=== PATIENT | female | born 1930 | race Caucasian/White ===

== ENCOUNTER 2018-09-08 15:03 | Inpatient (IN) | payer MEDICARE, OTHER ==
[~2018-09-08] VITALS: Ht 160 cm; Wt 83.9 kg
[~2018-09-08 15:03] MED LIST: FLUSH; HYDR-2966 PO; INDO-23 PO; MAGN400T36 PO; METO25TA93 PO; POTA20TA94 PO; WARF2TAB13 PO
[2018-09-08] MEDS ORDERED: NS(*) 0.9% 1000 ML BAG 1,000 ML IV ONE (15:13)
[2018-09-08] MEDS ORDERED: PANTOPRAZOLE SOD 40 MG IV VIAL IVP ONE (15:15)
--- NOTE | 2018-09-08 15:25 | ER Report ---
History and Physical Time Seen By MD: 15:05 HPI/ROS CHIEF COMPLAINT: Bloody stool HISTORY OF PRESENT ILLNESS: This is an 88-year-old female presents to the emergency department via EMS for bloody stools. Patient is a resident of [facility], this morning she had 3 bright red stools, then had a fourth stool which was dark. Patient did go to the clinic in [place] was brieftly evaluated, subsequently our emergency department was contacted as they wanted to transport to our ED. being transported to via ground ems. She arrives alert and oriented however when we sat her up to get her off the gurney she did become diaphoretic and pale, states that she is passing stool, she was lifted to the ED gurney. 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 She denies chest pain or shortness of breath, no nausea or vomiting. No abdominal pain or rectal pain. No history of GI bleeds. REVIEW OF SYSTEMS: Constitutional: No fever, no chills. Eyes: No discharge. ENT: No sore throat. Cardiovascular: No chest pain, no palpitations. Respiratory: No cough, no shortness of breath. Gastrointestinal: As above. Genitourinary: No hematuria. Musculoskeletal: No back pain. Skin: No rashes. Neurological: No headache. Allergies: Coded Allergies: No Known Drug Allergies (Unverified , 06/21/14) Home Meds Reported Medications Indomethacin (INDOMETHACIN) 50 Mg Capsule, 1 CAP PO TID PRN for gout, CAPSULE 06/21/14 Potassium Chloride (POTASSIUM CHLORIDE) 20 Meq Tab.er.prt, 1 TAB PO QDAY 06/21/14 Metoprolol Tartrate (METOPROLOL TARTRATE) 25 Mg Tablet, 1 TAB PO BID, TAB 06/21/14 Magnesium Oxide (MAGNESIUM OXIDE) 400 Mg Tablet, 1 TAB PO QDAY 06/21/14 Hydrochlorothiazide (HYDROCHLOROTHIAZIDE) 25 Mg Tablet, 1 TAB PO QODAY 06/21/14 Discontinued Reported Medications Warfarin Sodium (WARFARIN SODIUM) 5 Mg Tablet, 2.5 MG PO QDAY, TAB 09/08/18 Warfarin Sodium (WARFARIN SODIUM) 2 Mg Tablet, 1 TAB PO QDAY or as directed 06/21/14 Discontinued Scripts [Flush] No Conflict Check, 1 BOX, #1 BOX 0 Refills 1 saline flush per protocol daily Prov:MICKEY BELLO MD 07/05/14 [Flush] No Conflict Check, BOX, #1 Heparin and saline flush daily as directed Prov:MICKEY BELLO MD 06/21/14 Past Medical/Surgical History The patient has a past medical and surgical history of left breast cancer, maste ctomy, chronic anticoagulation, 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 Reviewed Nurses Notes: Yes Constitutional Vital Sign - Last 24 Hours 09/08/18 09/08/18 09/08/18 09/08/18 15:03 15:09 15:13 15:17 Pulse ??? 79 Resp 12 B/P (MAP) 99/44 (62) 94/57 (69) 99/44 Pulse Ox 85 O2 Delivery Room Air 09/08/18 09/08/18 09/08/18 09/08/18 15:28 15:41 15:48 15:50 Pulse 84 Resp 20 B/P (MAP) 67/47 (54) 102/67 (79) 124/59 (80) Pulse Ox 99 09/08/18 09/08/18 09/08/18 09/08/18 15:59 16:03 16:10 16:15 Pulse 74 Resp 17 B/P (MAP) 76/32 (47) 85/33 (50) 98/54 (69) 112/70 (84) Pulse Ox 91 09/08/18 09/08/18 09/08/18 09/08/18 16:18 16:20 16:20 16:25 Pulse 73 Resp 11 B/P (MAP) 103/53 (70) 104/72 (83) Pulse Ox 99 O2 Flow Rate 3.0 09/08/18 09/08/18 09/08/18 09/08/18 16:30 16:33 16:35 16:40 Pulse 73 Resp 12 B/P (MAP) 107/61 (76) 121/57 (78) 135/100 (112) Pulse Ox 98 09/08/18 09/08/18 09/08/18 09/08/18 16:45 16:48 16:50 16:55 Pulse 104 Resp 9 B/P (MAP) 113/56 (75) 118/53 (74) 94/55 (68) Pulse Ox 97 4/10/09/08/18 09/08/18 09/08/18 17:00 17:03 17:10 17:15 Pulse 97 Resp 10 B/P (MAP) 102/66 (78) ???/??? (1664) ???/??? (1664) Pulse Ox 96 09/08/18 09/08/18 09/08/18 09/08/18 17:25 17:30 17:35 17:38 Pulse 78 Resp 10 B/P (MAP) 103/71 (82) 114/80 (91) 108/48 (68) Pulse Ox 98 09/08/18 09/08/18 09/08/18 09/08/18 17:40 17:45 17:50 17:53 Pulse 88 Resp 14 B/P (MAP) 85/53 (64) 87/63 (71) 96/45 (62) Pulse Ox 96 09/08/18 09/08/18 09/08/18 09/08/18 17:55 18:00 18:05 18:05 Temp 97.8 B/P (MAP) 103/76 (85) 114/38 (63) 119/60 (79) 09/08/18 09/08/18 09/08/18 09/08/18 18:08 18:10 18:15 18:20 Pulse 76 B/P (MAP) 105/52 (69) 89/60 (70) 105/83 (90) 09/08/18 09/08/18 09/08/18 09/08/18 18:23 18:25 18:30 18:34 Pulse 80 Resp 10 B/P (MAP) 123/58 (79) 72/50 (57) 111/85 (94) Pulse Ox 97 09/08/18 18:38 Pulse 82 Resp 15 Pulse Ox 95 Physical Exam General Appearance: The patient is alert, has no immediate need for airway protection and no signs of toxicity. Eyes: Pupils equal and round no pallor conjunctiva. ENT, Mouth: Mucous membranes are moist. Respiratory: There are no retractions, lungs are clear to auscultation. Cardiovascular: Regular rate and rhythm, faint systolic murmur, no clicks or rubs. Gastrointestinal: Abdomen is soft, tenderness to the right lower quadrant with palpation otherwise unremarkable, normoactive bowel sounds, no abdominal bruits no masses. Upon examination there is a large amount of melena between the enrique ent's legs coming from her rectum, with a large number of clots. Neurological: Alert and oriented eyes 4. Moving all MDs. Following all commands. No focal neuro deficits. Skin: Warm and dry, no rashes. Musculoskeletal: Neck is supple non tender. Extremities are nontender, nonswollen and have full range of motion. DIFFERENTIAL DIAGNOSIS: After history and physical exam differential diagnosis was considered for upper GI bleeding including but not limited to ulcer disease, gastritis, Lindsay-Villa tear, and esophageal varices. Medical Decision Making Data Points Result Diagram: 09/10/1845 09/10/1845 Laboratory Hematology Test 09/08/18 15:40 09/08/18 16:04 09/08/18 16:49 09/08/18 18:44 Total Bilirubin 0.5 mg/dl (0.2-1.3) Aspartate Amino Transf (AST/SGOT) 17 U/L (0-35) Alanine Aminotransferase (ALT/SGPT) 19 U/L (0-56) Alkaline Phosphatase 82 U/L (0-126) Troponin I < 0.012 ng/ml Total Protein 5.7 g/dl (6.3-8.2) Albumin 3.2 g/dl (3.5-5.0) Lipase 30 U/L (23-300) Activated Partial Thromboplast Time 43 seconds (23-35) Urine Color Yellow Urine Clarity Slightly-cloudy Urine pH 5.0 pH (4.8-9.5) Urine Specific [place] 1.017 Urine Protein Negative mg/dL (NEGATIVE) Urine Glucose (UA) Negative mg/dL (NEGATIVE) Urine Ketones Trace mg/dL (NEGATIVE) Urine Blood Small (NEGATIVE) Urine Nitrite Negative (NEGATIVE) Urine Bilirubin Negative (NEGATIVE) Urine Urobilinogen Negative mg/dL (0.2-1.9) Urine Leukocyte Esterase Negative (NEGATIVE) Urine RBC 1 /HPF (0-2/HPF) Urine WBC <1 /HPF (0-5/HPF) Urine Squamous Epithelial Cells Few /LPF (NONE-FEW) Urine Bacteria Negative /HPF (NONE-FEW) Urine Hyaline Casts Few /LPF (NONE-FEW) Urine Mucus None /HPF (NONE-FEW) Lab Scanned Report Emergency Blood Chemistry Test 09/08/18 15:40 09/08/18 16:04 09/08/18 16:49 09/08/18 18:44 Total Bilirubin 0.5 mg/dl (0.2-1.3) Aspartate Amino Transf (AST/SGOT) 17 U/L (0-35) Alanine Aminotransferase (ALT/SGPT) 19 U/L (0-56) Alkaline Phosphatase 82 U/L (0-126) Troponin I < 0.012 ng/ml Total Protein 5.7 g/dl (6.3-8.2) Albumin 3.2 g/dl (3.5-5.0) Lipase 30 U/L (23-300) Activated Partial Thromboplast Time 43 seconds (23-35) Urine Color Yellow Urine Clarity Slightly-cloudy Urine pH 5.0 pH (4.8-9.5) Urine Specific [place] 1.017 Urine Protein Negative mg/dL (NEGATIVE) Urine Glucose (UA) Negative mg/dL (NEGATIVE) Urine Ketones Trace mg/dL (NEGATIVE) Urine Blood Small (NEGATIVE) Urine Nitrite Negative (NEGATIVE) Urine Bilirubin Negative (NEGATIVE) Urine Urobilinogen Negative mg/dL (0.2-1.9) Urine Leukocyte Esterase Negative (NEGATIVE) Urine RBC 1 /HPF (0-2/HPF) Urine WBC <1 /HPF (0-5/HPF) Urine Squamous Epithelial Cells Few /LPF (NONE-FEW) Urine Bacteria Negative /HPF (NONE-FEW) Urine Hyaline Casts Few /LPF (NONE-FEW) Urine Mucus None /HPF (NONE-FEW) Lab Scanned Report Emergency Blood Coagulation Test 09/08/18 16:04 Activated Partial Thromboplast Time 43 seconds Urinalysis Test 09/08/18 16:49 Urine Color Yellow Urine Clarity Slightly-cloudy Urine pH 5.0 pH (4.8-9.5) Urine Specific [place] 1.017 Urine Protein Negative mg/dL (NEGATIVE) Urine Glucose (UA) Negative mg/dL (NEGATIVE) Urine Ketones Trace mg/dL (NEGATIVE) Urine Blood Small (NEGATIVE) Urine Nitrite Negative (NEGATIVE) Urine Bilirubin Negative (NEGATIVE) Urine Urobilinogen Negative mg/dL (0.2-1.9) Urine Leukocyte Esterase Negative (NEGATIVE) Urine RBC 1 /HPF (0-2/HPF) Urine WBC <1 /HPF (0-5/HPF) Urine Squamous Epithelial Cells Few /LPF (NONE-FEW) Urine Bacteria Negative /HPF (NONE-FEW) Urine Hyaline Casts Few /LPF (NONE-FEW) Urine Mucus None /HPF (NONE-FEW) EKG/Imaging EKG Interpretation 12 lead EKG: Time of EKG 1518. Rhythm: Normal sinus rhythm, ventricular rate 76 bpm. [place]: normal QRS: normal ST segments: No ST depression or elevation identified. Inverted T wave in lead 3 No previous EKGs for comparison. Imaging Location: [facility] [place] Patient: Kita Grover : 1930 Visit/Account:[id number] Date of Sevice: 09/08/2018 CHEST SINGLE AP History: lightheaded FINDINGS: Comparison studies: None. Tubes and Lines: None. Lungs and pleura: Well aerated. No evidence of focal consolidation or pleural effusions. Mediastinum: There is a fullness to the mediastinum without a well-defined mass. There is a mild rightward deviation of the trachea. Cardiac silhouette: Cardiac silhouette borderline upper normal limits. No evidence of failure. Osseous structures: Left shoulder arthroplasty noted. Otherwise unremarkable for age. IMPRESSION: Mediastinal prominence. Given patient's advanced age this may be related to vascular ectasia as well as ascending aneurysmal dilatation. Mediastinal mass cannot be excluded. Recommend follow-up chest CT, preferably with contrast, for further evaluation. Report Dictated By: Heri Langston MD at 09/08/2018 4:40 PM Report E-Signed By: Heri Langston MD at 09/08/2018 4:43 PM WSN:[id number] Location: [facility] [place] Patient: Kita Grover : 1930 Visit/Account:[id number] Date of Sevice: 09/08/2018 COMPUTED TOMOGRAPHY OF THE CHEST, ABDOMEN, AND PELVIS with CONTRAST DATE OF EXAM: 09/08/2018. INDICATION: . eval for aneurysm. . TECHNIQUE: Contiguous axial CT images were obtained through the chest, abdomen, and pelvis after 75 mL Isovue-370. Coronal and sagittal reformatted images were submitted. COMPARISON: None. FINDINGS: Thyroid: There are a few small nodules in the right lobe of the thyroid. Thoracic inlet: No thoracic inlet adenopathy. Heart and great vessels: Heart size is normal. Moderate aortic arch atherosclerosis. Mediastinum and brittany: No mediastinal or hilar adenopathy. Lungs and pleura: No effusion, consolidation, or pneumothorax. Mild dependent atelectasis and/or scar. There is a 1.2 cm subpleural nodule at the left base on image 71 of series 2. Breast and axilla: Unremarkable by CT with numerous coarse calcifications of the right breast. Liver and hepatic vasculature: No focal liver lesion. Gallbladder and bile ducts: Surgically absent gallbladder. Mild prominence of the common bile duct in keeping with cholecystectomy. Spleen: Normal Pancreas: Moderate pancreatic atrophy. Adrenals: Normal Kidneys, ureters and bladder: Mild left hydronephrosis but no downstream stone. Retroperitoneum and aorta: Extensive aortic atherosclerosis. No aneurysm. GI tract, mesentery and peritoneum: Colonic diverticula are numerous without definite findings of diverticulitis. Uterus and adnexa: Surgically absent uterus. Bones and soft tissues: Bone density is diffusely decreased. Severe multilevel degenerative findings in the spine. A left shoulder prosthesis is noted. Indeterminate 1.4 cm lucency within the L4 vertebral body. Additional ill- defined 1 cm lucency in the L3 vertebral body. IMPRESSION: 1. No thoracoabdominal aneurysm. 2. Indeterminate 1.2 cm nodule laterally in the left lower lobe. Consider follow-up CT in three months. 3. Indeterminate lucencies/lucent lesions in the L4 and L3 vertebral bodies. These may be incidental, but recommend comparison to prior imaging if available. Neoplasm not entirely excluded. One of the following dose optimization techniques was utilized in the performance of this exam: Automated exposure control; adjustment of the mA and/or kV according to the patient's size; or use of an iterative reconstruction technique. Specific details can be referenced in the facility's radiology CT exam operational policy. Report Dictated By: Josse Perez MD at 09/08/2018 5:47 PM Report E-Signed By: Josse Perez MD at 09/08/2018 6:07 PM WSN:[id number] ED Course/Re-evaluation Clinical Indication for ER IV: Hypotention, IV Access ED Course The patient was admitted to room via EMS. A history and physical were obtained. Differential diagnoses were considered. EKG showing normal sinus rhythm. A CBC, CMP, troponin, PT and INR were obtained.CBC unremarkable, chemistry showing creatinine 1.20, negative troponin, INR 3.05 negative UA. Patient was given a total of 2 L of normal saline in the emergency department, was given 1 L of normal saline en route. I did try to sit the patient up several times, she was symptomatic with lightheadedness, diaphoretic. The patient's blood pressures were in the 60s and 70s systolic, I discussed vascular access as we were having difficulties with peripheral access, patient was agreeable with a central line, a right femoral central line was placed has not below. Dr. Das was at the bedside during the procedure. Single view chest x-ray showing Mediastinal prominence given the patient's age, recommendation was a CT of the chest, a CT of the chest and pelvis was performed. Negative for aneurysm. Patient was given 2 units of FFP. 40 mg IV Protonix, followed by an 80 mg IV Protonix drip. Patient's blood pressures signatory improved, consistently around 100-110 systolic. Patient states she is feeling much better, color has improved. I speak with Dr. Mark regarding the patients case, she was admitted for upper GI bleed, she will likely have lower and upper GI inspection. Patient remains NPO as this time. Procedure: Central line placement. After verbal informed consent from patient; with the risks explained to be bleeding, infection, and collapsed lung; maximal sterile barrier technique was uses including cap, gown, sterile gloves, large sheet, hand washing and chlorhexidine prep. The area anesthetized with 1% lidocaine. The right femoral vein was punctured with a 19 gauge finder needle, then a wire introducer was placed, a 7 [place] triple lumen was placed using Seldinger technique. There were no complications. Blood return low pressure, dark blood. Patient to lerated procedure well. CT results Appropriate line placement, and no pneumothorax. . Radiologist interpretation is pending. The procedure was performed by myself and Dr. Das 09/08/2018 5:01:34 pm I did consult with Dr. Garland, after reviewing the x-ray, we discussed imaging the chest and pelvis, also start her on FFP. Patient is agreeable. 09/08/2018 6:22:30 pm I did speak with Dr. Garland, who reviewed the CT, he is accepted the patient and the surgical services, patient will be admitted to the medical floor, she is getting a total of 2 units of FFP. Decision to Disposition Date: Sep 08, 2018 Decision to Disposition Time: 18:22 Depart Departure Latest Vital Signs Vital Signs Date Time Temp Pulse Resp B/P (MAP) Pulse Ox O2 Delivery O2 Flow Rate FiO2 09/08/18 18:38 82 15 95 09/08/18 18:34 111/85 (94) 09/08/18 18:05 97.8 09/08/18 16:20 3.0 09/08/18 15:17 Room Air Impression: Primary Impression: Upper GI bleed Condition: Improved Disposition: Admitted from ER Referrals: MICKEY BELLO MD (PCP) KATHY CARBAJAL CRM COORDINATOR-BC Sep 08, 2018 15:25
--- NOTE | 2018-09-08 15:28 | EKG ---
FACILITY: [facility] [place] PATIENT NAME: BUTCH SWANSON : [id number] MR: [id number] V: [id number] EXAM DATE: ORDERING PHYSICIAN: KATHY CARBAJAL TECHNOLOGIST: Test Reason : Blood Pressure : / mmHG Vent. Rate : 076 BPM Atrial Rate : 076 BPM P-R Int : 158 ms QRS Dur : 074 ms QT Int : 378 ms P-R-T Axes : 044 033 022 degrees QTc Int : 425 ms Normal sinus rhythm Normal ECG No previous ECGs available Confirmed by SANA CASTRO ([id number]) on 09/09/2018 6:38:23 AM Referred By: Confirmed By:SANA CASTRO
[2018-09-08 16:02] LABS: PLATELET COUNT, AUTOMATED 200 K/uL (150-450)
[2018-09-08 16:12] LABS: INR 3.05
[2018-09-08] MEDS ORDERED: WARF5TAB23 PO (16:29)
--- NOTE | 2018-09-08 16:48 | RADIOLOGY IMAGING REPORT ---
FACILITY: [facility] PATIENT NAME: Kita Grover : 1930 MR: [id number] V: [id number] EXAM DATE: ORDERING PHYSICIAN: KATHY CARBAJAL TECHNOLOGIST: Location: [facility] [place] Patient: Kita Grover : 1930 Visit/Account:[id number] Date of Sevice: 09/08/2018 CHEST SINGLE AP History: lightheaded FINDINGS: Comparison studies: None. Tubes and Lines: None. Lungs and pleura: Well aerated. No evidence of focal consolidation or pleural effusions. Mediastinum: There is a fullness to the mediastinum without a well-defined mass. There is a mild ri ghtward deviation of the trachea. Cardiac silhouette: Cardiac silhouette borderline upper normal limits. No evidence of failure. Osseous structures: Left shoulder arthroplasty noted. Otherwise unremarkable for age. IMPRESSION: Mediastinal prominence. Given patient's advanced age this may be related to vascular ectasia as we ll as ascending aneurysmal dilatation. Mediastinal mass cannot be excluded. Recommend follow-up [facility] CT, preferably with contrast, for further evaluation. Report Dictated By: Heri Langston MD at 09/08/2018 4:40 PM Report E-Signed By: Heri Langston MD at 09/08/2018 4:43 PM WSN:[id number]
[2018-09-08] MEDS ORDERED: IOPAMIDOL 76% 150 ML INFUS BTL 150 ML ONE (17:08)
[2018-09-08] MEDS: PANTOPRAZOLE SOD(*)40 MG VIAL 80 MG in NS(*) 0.9% 100 ML BAG 100 ML IV SCH (17:28)
--- NOTE | 2018-09-08 18:11 | RADIOLOGY IMAGING REPORT ---
FACILITY: [facility] PATIENT NAME: Kita Grover : 1930 MR: [id number] V: [id number] EXAM DATE: ORDERING PHYSICIAN: KATHY CARBAJAL TECHNOLOGIST: [place] [facility] [place] Kita Grover : 1930 Visit/Account:[id number] Date of Sevice: 09/08/2018 COMPUTED TOMOGRAPHY OF THE CHEST, ABDOMEN, AND PELVIS with CONTRAST DATE OF EXAM: 09/08/2018. INDICATION: . eval for aneurysm. . TECHNIQUE: Contiguous axial CT images were obtained through the chest, abdomen, and pelvis after 75 mL Isovue-370. Coronal and sagittal reformatted images were submitted. COMPARISON: None. FINDINGS: Thyroid: There are a few small nodules in the right lobe of the thyroid. Thoracic inlet: No thoracic inlet adenopathy. Heart and great vessels: Heart size is normal. Moderate aortic arch atherosclerosis. Mediastinum and brittany: No mediastinal or hilar adenopathy. Lungs and pleura: No effusion, consolidation, or pneumothorax. Mild dependent atelectasis and/or sc ar. There is a 1.2 cm subpleural nodule at the left base on image 71 of series 2. Breast and axilla: Unremarkable by CT with numerous coarse calcifications of the right breast. Liver and hepatic vasculature: No focal liver lesion. Gallbladder and bile ducts: Surgically absent gallbladder. Mild prominence of the common bile duct in keeping with cholecystectomy. Spleen: Normal Pancreas: Moderate pancreatic atrophy. Adrenals: Normal Kidneys, ureters and bladder: Mild left hydronephrosis but no downstream stone. Retroperitoneum and aorta: Extensive aortic atherosclerosis. No aneurysm. GI tract, mesentery and peritoneum: Colonic diverticula are numerous without definite findings of div erticulitis. Uterus and adnexa: Surgically absent uterus. Bones and soft tissues: Bone density is diffusely decreased. Severe multilevel degenerative findings in the spine. A left shoulder prosthesis is noted. Indeterminate 1.4 cm lucency within the L4 vert ebral body. Additional ill-defined 1 cm lucency in the L3 vertebral body. IMPRESSION: 1. No thoracoabdominal aneurysm. 2. Indeterminate 1.2 cm nodule laterally in the left lower lobe. Consider follow-up CT in three mon ths. 3. Indeterminate lucencies/lucent lesions in the L4 and L3 vertebral bodies. These may be incidenta l, but recommend comparison to prior imaging if available. Neoplasm not entirely excluded. One of the following dose optimization techniques was utilized in the performance of this exam: Autom ated exposure control; adjustment of the mA and/or kV according to the patient's size; or use of an i terative reconstruction technique. Specific details can be referenced in the facility's radiology C T exam operational policy. Report Dictated By: Josse Perez MD at 09/08/2018 5:47 PM Report E-Signed By: Josse Perez MD at 09/08/2018 6:07 PM WSN:[id number]
[2018-09-08] MEDS ORDERED: MORPHINE 2 MG/ML SYR IVP PRN (18:25)
[2018-09-08] MEDS ORDERED: FLUSH 10 ML SYR IVP PRN (18:25)
[2018-09-08] MEDS ORDERED: NALOXONE HCL 0.4 MG/ML VIAL IVP PRN (18:25)
[2018-09-08] MEDS ORDERED: ONDANSETRON 4 MG/2 ML VIAL IVP PRN (18:25)
--- NOTE | 2018-09-08 20:04 | Gen Surgery History & Physical ---
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 It started this morning with copious amounts of bright red blood per rectum, large volume and the last bowel movement was more dark blood. She's had about 5 or 6 bloody bowel movements today. She has had previous small volume bright red blood per rectum that she has attributed to hemorrhoids but this was much different today. No abdominal pain. She has felt lightheaded and weak. Her last colonoscopy was many years ago, 20 years ago approximately, and she reports polyps are removed but they were unable to get all the way around her colon due to "a kink in her bowel". No family history of colon or rectal cancer. She did have a left mastectomy for months ago in [place] for a left breast cancer. She reports her lymph nodes were negative. 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 History Problems: (1) History of Status: Chronic (2) History of hysterectomy Status: Chronic (3) History of cholecystectomy Status: Chronic (4) History of appendectomy Status: Chronic (5) History of DVT (deep vein thrombosis) (6) Chronic anticoagulation Status: Chronic (7) Gout Status: Chronic Home Meds Reported Medications Warfarin Sodium (WARFARIN SODIUM) 5 Mg Tablet, 2.5 MG PO QDAY, TAB 09/08/18 Indomethacin (INDOMETHACIN) 50 Mg Capsule, 1 CAP PO TID PRN for gout, CAPSULE 06/21/14 Potassium Chloride (POTASSIUM CHLORIDE) 20 Meq Tab.er.prt, 1 TAB PO QDAY 06/21/14 Metoprolol Tartrate (METOPROLOL TARTRATE) 25 Mg Tablet, 1 TAB PO BID, TAB 06/21/14 Magnesium Oxide (MAGNESIUM OXIDE) 400 Mg Tablet, 1 TAB PO QDAY 06/21/14 Hydrochlorothiazide (HYDROCHLOROTHIAZIDE) 25 Mg Tablet, 1 TAB PO QODAY 06/21/14 Discontinued Reported Medications Warfarin Sodium (WARFARIN SODIUM) 2 Mg Tablet, 1 TAB PO QDAY or as directed 06/21/14 Discontinued Scripts [Flush] No Conflict Check, 1 BOX, #1 BOX 0 Refills 1 saline flush per protocol daily Prov:MICKEY BELLO MD 07/05/14 [Flush] No Conflict Check, BOX, #1 Heparin and saline flush daily as directed Prov:MICKEY BELLO MD 06/21/14 Allergies: Coded Allergies: No Known Drug Allergies (Unverified , 06/21/14) Patient History: FH: diabetes mellitus MOTHER, , Age:54 Review of Systems All Systems Reviewed/Normal: Yes, Except as Noted Neurological: Weakness, Dizziness Gastrointestinal: Hematochezia, Melena Exam General Appearance: Alert, Awake, No Acute Distress, Afebrile Neuro: No Gross deficits Eyes: PERRLA Chest: Other (well-healed mastectomy scar, left chest) GI: Abd Soft and Non-Tender Extremities: Warm, Perfused Psych: Alert & Oriented X3, Appropriate Mood & Affect Medical Decision Making Data Points Result Diagram: 09/08/18 1540 09/08/18 1540 Assessment and Plan Problems: (1) GI bleeding Status: Acute Assessment & Plan: 09/08/18: Will admit for close observation. We will transfuse FFP to normalize her INR and will transfuse packed red blood cells based on her hemoglobin. Her hemoglobin in the emergency room is still in the normal range but we'll follow this closely as I'm sure it'll drop as we rehydrate her and initiate collaborate. We'll keep her nothing by mouth tonight until emergency surgery is ruled out. We'll avoid any blood thinners were NSAIDs. Will continue the PPI drip that was started in the ER until we can rule out peptic ulcer disease. She does take indomethacin regularly for gout so is at risk for PUD. We'll plan on bowel prep tomorrow and upper and lower GI endoscopy after her prep is completed. I have explained this plan to her in great detail and her questions have been answered. She indicates her understanding of this discussion and she indicates that she is agreeable with proceeding with this plan. (2) Chronic anticoagulation Status: Chronic Condition Stable Time Spent: < 30 min Venous Thromboembolism VTE Risk Physician Assess for VTE Risk: Yes Patient's VTE Risk: Low VTE Diagnostic Test 2 Days Prior to Admit: No Antithrombotics Is Pt On Any Antithrombotics?: No Problem Qualifiers (1) GI bleeding: GI bleed type/associated pathology: unspecified gastrointestinal hemorrhage type Qualified Codes: K92.2 - Gastrointestinal hemorrhage, unspecified SANA LOPEZ MD Sep 08, 2018 20:03
[2018-09-08 20:10] VITALS: BP 150/66
[2018-09-08] MEDS: NS(*) 0.9% 1000 ML BAG 1,000 ML IV PRN (20:27)
[2018-09-08] MEDS: METOPROLOL TART 50 MG TAB PO SCH (20:29)
[2018-09-08] MEDS ORDERED: METOPROLOL TART 50 MG TAB PO SCH (21:00)
[2018-09-08 21:23] LABS: INR 1.78
[2018-09-08] MEDS ORDERED: NS(*) 0.9% 500 ML BAG 500 ML ONE (22:07)
[2018-09-08 22:58] VITALS: BP 141/55
[2018-09-08 23:18] VITALS: BP 118/74
[2018-09-09] VITALS (16 sets, daily range): BP systolic 93–152; BP diastolic 33–96; Ht 160 cm; Wt 83.9 kg
[2018-09-09] MEDS: PANTOPRAZOLE SOD(*)40 MG VIAL 80 MG in NS(*) 0.9% 100 ML BAG 100 ML IV SCH ×2 (03:05→13:13)
[2018-09-09] MEDS: NS(*) 0.9% 1000 ML BAG 1,000 ML IV PRN ×2 (04:57→13:13)
[2018-09-09 05:58] LABS: INR 1.86
[2018-09-09 06:01] LABS: PLATELET COUNT, AUTOMATED 126 K/uL (150-450)
--- NOTE | 2018-09-09 07:32 | General Surgery Progress Note ---
Subjective Progress Notes Subjective Had one bloody BM overnight (old blood). No abdominal pain. Feeling much better this morning. Physical Exam Vital Signs Date Time Temp Pulse Resp B/P (MAP) Pulse Ox O2 Delivery O2 Flow Rate FiO2 09/09/18 05:15 85 09/09/18 04:00 56 09/09/18 03:45 97.9 16 121/59 09/09/18 03:45 Nasal Cannula 1.0 Intake and Output 09/09/18 07:00 Intake Total 3850 ml Output Total 50 ml Balance 3800 ml Intake IV Total 2850 ml Blood Product 1000 ml Output Urine Total 50 ml # Voids 5 # Bowel Movements 1 General Appearance: Alert, Awake, No Acute Distress, Afebrile GI: Soft and Non-Tender Extremities: Warm, Perfused Result Diagram: 09/09/1851109/09/18511 Assessment and Plan Problems: (1) GI bleeding Status: Acute Assessment & Plan: 09/08/18: Will admit for close observation. We will transfuse FFP to normalize her INR and will transfuse packed red blood cells based on her hemoglobin. Her hemoglobin in the emergency room is still in the normal range but we'll follow this closely as I'm sure it'll drop as we rehydrate her and initiate collaborate. We'll keep her nothing by mouth tonight until emergency surgery is ruled out. We'll avoid any blood thinners were NSAIDs. Will continue the PPI drip that was started in the ER until we can rule out peptic ulcer disease. She does take indomethacin regularly for gout so is at risk for PUD. We'll plan on bowel prep tomorrow and upper and lower GI endoscopy after her prep is completed. I have explained this plan to her in great detail and her questions have been answered. She indicates her understanding of this discussion and she indicates that she is agreeable with proceeding with this p robel. 09/09/18: Doing well. Vitals stable. H/H dropped significantly yesterday but responded well to 2U pRBC. Will follow H/H today. INR is less then 2 so will follow this. Will give 2 fleets enemas today and will plan on EGD and colonoscopy this afternoon. Continue PPI gtt until I can r/o PUD as the cause of her GI bleeding. I have explained this plan including the EGD and colonoscopy with her in detail along with the alternatives and risks. I emphasized that her colon will not be adequately prepped for a thorough screening quality colonoscopy and it may need to be repeated after appropriate prep. She indicates her understanding of this discussion and her questions were answered to her apparent satisfaction. NPO until after the procedures this afternoon. (2) Chronic anticoagulation Status: Chronic Condition Stable. Time Spent: < 30 min Exam Sepsis Risk: No Definite Risk Problem Qualifiers (1) GI bleeding: GI bleed type/associated pathology: unspecified gastrointestinal hemorrhage type Qualified Codes: K92.2 - Gastrointestinal hemorrhage, unspecified SANA LOPEZ MD Sep 09, 2018 07:32
[2018-09-09] MEDS: METOPROLOL TART 50 MG TAB PO SCH ×2 (09:26→21:00)
[2018-09-09] MEDS ORDERED: NORMOSOL R SOLN(*) 1000 ML BAG 1,000 ML IV ONE (16:00)
[2018-09-09] MEDS ORDERED: MIDAZOLAM 2 MG/2 ML VIAL ONE (17:53)
[2018-09-09] MEDS ORDERED: KETAMINE HCL 500 MG/10 ML VIAL ONE ×2 (18:07→18:15)
[2018-09-09] MEDS ORDERED: LABETALOL HCL 25 MG/5 ML SYRINGE ONE (18:09)
[2018-09-09] MEDS ORDERED: KCL/D1/2NS 20 MEQ 1000 ML 1,000 ML IV PRN (18:25)
[2018-09-09 19:28] LABS: INR 2.01
[2018-09-09] MEDS: FAMOTIDINE 20 MG TAB PO SCH (21:45)
[2018-09-10 03:04] VITALS: BP 120/84
[2018-09-10 06:18] LABS: PLATELET COUNT, AUTOMATED 108 K/uL (150-450)
[2018-09-10 06:36] LABS: INR 2.09
[2018-09-10 07:16] VITALS: BP 133/53
[2018-09-10] MEDS: FAMOTIDINE 20 MG TAB PO SCH (08:40)
[2018-09-10] MEDS: METOPROLOL TART 50 MG TAB PO SCH (08:40)
--- NOTE | 2018-09-10 09:04 | Short(Outpt) Discharge Summary ---
Discharge Summary Reason for Hosp/Final Diag: (1) GI bleeding Status: Acute Hospital Course & Plan: 09/08/18: Will admit for close observation. We will transfuse FFP to normalize her INR and will transfuse packed red blood cells based on her hemoglobin. Her hemoglobin in the emergency room is still in the normal range but we'll follow this closely as I'm sure it'll drop as we rehydrate her and initiate collaborate. We'll keep her nothing by mouth tonight until emergency surgery is ruled out. We'll avoid any blood thinners were NSAIDs. Will continue the PPI drip that was started in the ER until we can rule out peptic ulcer disease. She does take indomethacin regularly for gout so is at risk for PUD. We'll plan on bowel prep tomorrow and upper and lower GI endoscopy after her prep is completed. I have explained this plan to her in great detail and her questions have been answered. She indicates her understanding of this discussion and she indicates that she is agreeable with proceeding with this plan. 09/09/18: Doing well. Vitals stable. H/H dropped significantly yesterday but responded well to 2U pRBC. Will follow H/H today. INR is less then 2 so will follow this. Will give 2 fleets enemas today and will plan on EGD and colonoscopy this afternoon. Continue PPI gtt until I can r/o PUD as the cause of her GI bleeding. I have explained this plan including the EGD and colonoscopy with her in detail along with the alternatives and risks. I emphasized that her colon will not be adequately prepped for a thorough screening quality colonoscopy and it may need to be repeated after appropriate prep. She indicates her understanding of this discussion and her questions were answered to her apparent satisfaction. NPO until after the procedures this afternoon. 09/10/18: Doing well. No signs of continued GI bleeding. EGD and colonoscopy completed yesterday. No UGI source of bleeding, EGD was normal. Colonoscopy revealed blood in colon to hepatic flexure then normal nonbloody stool in ascending colon. No active bleeding. Lots of diverticuli, especially in si gmoid colon. I suspect her bleeding was diverticular bleeding although this is difficult to say since it had stopped before endoscopy was completed. H/H is stable, no more bloody BMs since before endoscopy yesterday. Will d/c to home this morning. Pt advised to f/u with Dr. Rincon, her PCM, to discuss restarting coumadin or if it's even advisable to restart it but I recommend that she not be on coumadin for the week at a minimum due to this episode of GI bleeding. (2) Chronic anticoagulation Status: Chronic Departure Discharge to: Home, Self Care Discharge Instructions Home Meds Reported Medications Warfarin Sodium (WARFARIN SODIUM) 5 Mg Tablet, 2.5 MG PO QDAY, TAB 09/08/18 Indomethacin (INDOMETHACIN) 50 Mg Capsule, 1 CAP PO TID PRN for gout, CAPSULE 06/21/14 Potassium Chloride (POTASSIUM CHLORIDE) 20 Meq Tab.er.prt, 1 TAB PO QDAY 06/21/14 Metoprolol Tartrate (METOPROLOL TARTRATE) 25 Mg Tablet, 1 TAB PO BID, TAB 06/21/14 Magnesium Oxide (MAGNESIUM OXIDE) 400 Mg Tablet, 1 TAB PO QDAY 06/21/14 Hydrochlorothiazide (HYDROCHLOROTHIAZIDE) 25 Mg Tablet, 1 TAB PO QODAY 06/21/14 Discontinued Reported Medications Warfarin Sodium (WARFARIN SODIUM) 2 Mg Tablet, 1 TAB PO QDAY or as directed 06/21/14 Discontinued Scripts [Flush] No Conflict Check, 1 BOX, #1 BOX 0 Refills 1 saline flush per protocol daily Prov:MICKEY BELLO MD 07/05/14 [Flush] No Conflict Check, BOX, #1 Heparin and saline flush daily as directed Prov:MICKEY BELLO MD 06/21/14 Diet: Regular Activity: As Tolerated Special Instructions: Do not take ibuprofen, motrin, aleve, advil, indomethacin, naproxen, naprosyn, or aspirin or any medication that contains these things for the next 2 weeks. Don't take coumadin (warfarin) until you see your primary care provider, Dr. Rincon, to discuss the risks and benefits of continuing the blood thinner. If you start noticing worsening blood in your stools, call 911, and go to the nearest emergency room. You can expect to continue passing blood and clots in your stool that is left over from the bleeding episode over the next several days after going home. Problem Qualifiers (1) GI bleeding: GI bleed type/associated pathology: unspecified gastrointestinal hemorrhage type Qualified Codes: K92.2 - Gastrointestinal hemorrhage, unspecified SANA LOPEZ MD Sep 10, 2018 09:04
--- NOTE | 2018-09-10 13:35 | NUR ---
Oxygen Patient and son have oxygen at home, both a concentrator and portable. Pt states that she does not use portable. They also states that they do have a pulse oximeter at home. When she feels like she may be low during the day, pt. takes a few deep breaths and it usually resolves. She just uses oxygen at while sleeping. During this stay, O2 saturation dropped a few times on room air. I did another RA trial, where patient oxygen saturation was WNL. Before that trial, I instructed patient to take deep breaths. They discharged home to [place] on RA, and son stated that he would remind her to take deep breaths. I encourgad patient to check O2 saturations while at home and follow up with PCP.
[2018-09-11] MEDS ORDERED: HYDROCHLOROTHIAZIDE 25 MG TAB PO SCH (09:00)
== END 2018-09-10 11:23 | disposition home or self-care (01) | DRG 378 ==
LOC: ER 15:14 → MED 18:44
PROVIDERS: ADMIT Surgery; ATTEND Surgery
PROC: 02HV33Z Insertion of Infusion Device into Superior Vena Cava, Percutaneous Approach (ICD-10-PCS; principal; 2018-09-08)
PROC: 30233K1 Transfusion of Nonautologous Frozen Plasma into Peripheral Vein, Percutaneous Approach (ICD-10-PCS; 2018-09-08)
PROC: 30233N1 Transfusion of Nonautologous Red Blood Cells into Peripheral Vein, Percutaneous Approach (ICD-10-PCS; 2018-09-08)
PROC: 0DJD8ZZ Inspection of Lower Intestinal Tract, Via Natural or Artificial Opening Endoscopic (ICD-10-PCS; 2018-09-09)
PROC: 0DJ08ZZ Inspection of Upper Intestinal Tract, Via Natural or Artificial Opening Endoscopic (ICD-10-PCS; 2018-09-09 17:47)
DX: K57.31 Diverticulosis of large intestine without perforation or abscess with bleeding (principal); R71.0 Precipitous drop in hematocrit; E78.5 Hyperlipidemia, unspecified; I10 Essential (primary) hypertension; Z86.718 Personal history of other venous thrombosis and embolism; Z79.01 Long term (current) use of anticoagulants; Z85.3 Personal history of malignant neoplasm of breast
CPT/HCPCS: 71045; 71260; 74177; 81001; 82040; 82247; 82310; 82374; 82435; 82565; 82947; 83690; 84075; 84132; 84155; 84295; 84450; 84460; 84484; 84520; 85014; 85018; 85025; 85610; 85730; 86850; 86900; 86901; 86920; 93005; 96361; 96365; 96366; 99285; A4353; C9113; J2250; J7030; J7040; J7050; P9016; P9059; Q9967

== ENCOUNTER → 2019-01-19 | Outpatient (CLI) | payer MEDICARE, OTHER ==
[2018-09-09 15:55] VITALS: BMI 32.8
[~2019-01-19] MED LIST changes: +WARF5TAB23 PO
--- NOTE | 2019-01-19 16:05 | RADIOLOGY IMAGING REPORT ---
FACILITY: [facility] PATIENT NAME: Kita Grover : 1930 MR: [id number] V: [id number] EXAM DATE: ORDERING PHYSICIAN: MANUEL HENDERSON TECHNOLOGIST: [place] [facility] [place]: Kita Grover : 1930 Visit/Account:[id number] Date of Sevice: 01/19/2019 EXAMINATION: US VENOUS LOWER EXT RT COMPARISON: None Available HISTORY: Right lower extremity swelling FINDINGS: Standard right lower extremity Doppler ultrasound with color flow and spectral analysis is performed. The common femoral, femoral, and popliteal veins are widely patent and compress appropriately. The vi sualized deep calf veins are patent. The mid and distal greater saphenous vein are partially compressible and contain echogenic material s uggestive of age-indeterminate nonocclusive thrombus. The confluence of the greater saphenous vein wi th the deep femoral system is patent. No popliteal fluid collection. IMPRESSION: 1. No right lower extremity deep venous thrombus. 2. Right greater saphenous vein to age-indeterminate nonocclusive superficial thrombus. Results were discussed with MANUEL HENDERSON at 01/19/2019 3:55 PM. Report Dictated By: Valente Barnett MD at 01/19/2019 3:50 PM Report E-Signed By: Valente Barnett MD at 01/19/2019 3:56 PM WSN:[id number]
== END ==
LOC: US 10:38
PROVIDERS: ATTEND Family Medicine
DX: I82.811 Embolism and thrombosis of superficial veins of right lower extremity (principal)